=== PATIENT | male | born 1980 | race Caucasian/White ===

== ENCOUNTER 2018-05-23 22:27 | Emergency (ER) | payer OTHER, BC ==
[~2018-05-23] VITALS: Ht 182.9 cm; Wt 90.7 kg
[2018-05-23] MEDS ORDERED: Prednisone20 MG PO (23:20)
== END 2018-05-23 23:45 | disposition home or self-care (01) ==
LOC: ER 22:27
DX: S39.012A Strain of muscle, fascia and tendon of lower back, initial encounter (principal); F17.200 Nicotine dependence, unspecified, uncomplicated; Z79.52 Long term (current) use of systemic steroids; X50.0XXA Overexertion from strenuous movement or load, initial encounter
CPT/HCPCS: 96372; 99283-25; J1885; J7512